=== PATIENT | female | born 1950 | race Caucasian/White ===

== ENCOUNTER → 2021-07-22 | Outpatient (CLI) | payer MEDICARE ==
--- NOTE | 2021-07-30 13:58 | MM ---
Reason for exam: screening (asymptomatic). Last mammogram was performed 2 years and 3 months ago. History: Patient is postmenopausal and is nulliparous. Physical Findings: A clinical breast exam by your physician is recommended on an annual basis and results should be correlated with mammographic findings. MG 3D Screening Mammo W/Cad Bilateral CC and MLO view(s) were taken. Prior study comparison: April 21, 2019, mammogram, performed at [place]. December 08, 2016, mammogram, performed at [place]. There are scattered fibroglandular densities. There is no discrete abnormality. No significant changes when compared with prior studies. ASSESSMENT: Negative, BI-RAD 1 RECOMMENDATION: Routine screening mammogram of both breasts in 1 year.
== END | disposition home or self-care (01) ==
LOC: RADMAMWWP 10:17
PROVIDERS: ATTEND Internal Medicine
DX: Z12.31 Encounter for screening mammogram for malignant neoplasm of breast (principal); Z78.0 Asymptomatic menopausal state
CPT/HCPCS: 77063; 77067

== ENCOUNTER → 2021-09-15 | Outpatient (CLI) | payer MEDICARE ==
--- NOTE | 2021-09-15 13:59 | BD ---
EXAMINATION TYPE: Axial Bone Density DATE OF EXAM: 09/15/2021 COMPARISON: NONE CLINICAL HISTORY: 71 years year old Female. ICD-10 CODE: N95.8 MENOPAUSAL AND PERIMENOPAUSAL SYMPTOM S Height: 62 Weight: 195 FRAX RISK QUESTIONS: Secondary Osteoporosis: YES 3. Menopause before 45: YES RISK FACTORS HISTORY OF: Postmenopausal woman: YES, TOTAL HYST AT AGE 25 YRS OLD, HORMONES IN PAST FOR 3 MONTHS ONLY Hyperparathyroidism: NO Adrenal Insufficiency: NO MEDICATIONS: Additional Medications: BP MEDS, METFORMIN IN THE PAST FOR 3 YRS, NONE NOW, STATIN FOR CHOLESTEROL, VIT D AND CALCIUM, BLOOD THINNERS, Additional History: VERY EARLY MENOPAUSE, HYPERTENSION, BORDERLINE DIABETIC, CHOLESTEROL, HEART COND ITION, WITH STENTS EXAM MEASUREMENTS: Bone mineral densitometry was performed using the Fan [employer] System. Bone mineral density as measured about the Lumbar spine is: ----- L1-L4(G/cm2): 1.191 T Score Values are as follows: ----- L1: 0.3 ----- L2: -0.3 ----- L3: 0.1 ----- L4: 0.2 ----- L1-L4: 0.1 Bone mineral density FIRST DEXA STUDY AT [facility] Bone mineral density about the R hip (g/cm2): 0.904 Bone mineral density about the L hip (g/cm2): 0.933 T Score values are as follows: -----R Neck: -2.5 -----L Neck: -2.6 -----R Total: -08 -----L Total: -0.6 Bone mineral density FIRST BONE DENSITY AT [facility] FRAX%s: The graph provided illustrates a 15.1% chance for a major osteoporotic fx and a 4.2% chance f or the hips probability for fx in 10 years time. IMPRESSION: Osteopenia NOTE: T-SCORE=SD OF THE YOUNG ADULT MEAN.
== END | disposition home or self-care (01) ==
LOC: RADBDWWP 09:52
PROVIDERS: ATTEND Internal Medicine
DX: M85.89 Other specified disorders of bone density and structure, multiple sites (principal); Z78.0 Asymptomatic menopausal state
CPT/HCPCS: 77080

== ENCOUNTER → 2021-12-25 | Outpatient (CLI) | payer MEDICARE | END | disposition home or self-care (01) | LOC: LABWHC1 12:31 | PROVIDERS: ATTEND Internal Medicine | DX: Z52.098 Other blood donor, other blood (principal) | CPT/HCPCS: 86900; 86901 ==

== ENCOUNTER → 2022-08-26 | Outpatient (CLI) | payer MEDICARE ==
--- NOTE | 2022-08-27 08:31 | MM ---
Reason for Exam: Screening (asymptomatic). Last mammogram was performed 1 year(s) and 1 month(s) ago. Patient History: Menarche at age 12. Patient has no children. Left ovary removed at age 22. Right ovary removed at age 22. Hysterectomy at age 22. Postmenopausal. Risk Values: Wendy 5 year model risk: 2.0%. NCI Lifetime model risk: 5.1%. Prior Study Comparison: 12/08/2016 Screening Mammogram, [place]. 04/21/2019 Screening Mammogram, [place]. 07/22/2021 Bilateral Screening Mammogram, [facility]. Tissue Density: There are scattered fibroglandular densities. Findings: Analyzed By CAD. There is no suspicious group of microcalcifications or new suspicious mass in either breast. Overall Assessment: Benign, BI-RAD 2 Management: Screening Mammogram of both breasts in 1 year. A clinical breast exam by your physician is recommended on an annual basis and results should be correlated with mammographic findings. Electronically signed and approved by: Pa Hughes M.D. Radiologis
== END | disposition home or self-care (01) ==
LOC: RADMAMWWP 13:40
PROVIDERS: ATTEND Internal Medicine
DX: Z12.31 Encounter for screening mammogram for malignant neoplasm of breast (principal); Z78.0 Asymptomatic menopausal state
CPT/HCPCS: 77063; 77067

== ENCOUNTER → 2022-09-14 | Outpatient (CLI) | payer MEDICARE ==
--- NOTE | 2022-09-14 12:39 | XR ---
EXAMINATION TYPE: XR lumbosacral spine min 4V DATE OF EXAM: 09/14/2022 CLINICAL HISTORY: Low back pain. TECHNIQUE: Frontal, lateral, and oblique images of the lumbar spine are obtained. COMPARISON: None. FINDINGS: There are 5 lumbar type vertebral bodies identified. The lumbar spine shows straightened alignment without evidence of acute fracture or dislocation. Vertebral body heights and disk space he ights are within normal limits. [id number] multilevel anterior and lateral spurring is present. The oblique images appear within normal limits. There is moderate to severe overlying arteriovascul ar calcification noted. IMPRESSION: As above.
== END | disposition home or self-care (01) ==
LOC: RADXRYALE 12:21
PROVIDERS: ATTEND Internal Medicine
DX: M54.31 Sciatica, right side (principal)
CPT/HCPCS: 72110

== ENCOUNTER → 2022-10-06 | Outpatient (CLI) | payer MEDICARE ==
[2022-10-06 15:28] LABS: African American GFR (CKD) 64.7 (60.0-200.0); Anion Gap 11.9 mmol/L (10.00-18.00); BUN/Creat Ratio 19.2 Ratio (12.00-20.00); Blood Urea Nitrogen 19.2 mg/dL (9.0-27.0); Calcium 9.4 mg/dL (8.7-10.3); Carbon Dioxide 28.1 mmol/L (20.0-27.5); Non-African American GFR(CKD) 55.8 (60.0-200.0); Potassium 4.5 mmol/L (3.5-5.5)
== END | disposition home or self-care (01) ==
LOC: LABWHC1 08:38
PROVIDERS: ATTEND Internal Medicine Interventional Cardiology
DX: N17.9 Acute kidney failure, unspecified (principal)
CPT/HCPCS: 36415; 80048

== ENCOUNTER → 2023-09-01 | Outpatient (CLI) | payer MEDICARE ==
[2023-09-01 16:01] LABS: ALT 23 U/L (8-44); AST 24 U/L (13-35); Chol/HDL Ratio 2.91 Ratio; LDL Cholesterol,Calculated 77.9 mg/dL (0.0-131.0)
== END | disposition home or self-care (01) ==
LOC: LABWHC1 08:37
PROVIDERS: ATTEND Internal Medicine Cardiovascular Disease
DX: E78.2 Mixed hyperlipidemia (principal)
CPT/HCPCS: 36415; 80061; 84450; 84460

== ENCOUNTER → 2023-09-01 | Outpatient (CLI) | payer MEDICARE ==
--- NOTE | 2023-09-02 19:10 | MM ---
Reason for Exam: Screening (asymptomatic). Last screening mammogram was performed 12 month(s) ago. Patient History: Menarche at age 12. Patient has no children. Left ovary removed at age 22. Right ovary removed at age 22. Hysterectomy at age 22. Postmenopausal. Risk Values: Wendy 5 year model risk: 2.0%. NCI Lifetime model risk: 4.8%. Prior Study Comparison: 04/21/2019 Screening Mammogram, [place]. 07/22/2021 Bilateral Screening Mammogram, [facility]. 08/26/2022 Bilateral MG 3D screening mammo w/cad, [facility]. Tissue Density: There are scattered areas of fibroglandular density. Findings: Analyzed By CAD. There is no suspicious group of microcalcifications or new suspicious mass in either breast. Overall Assessment: Negative, BI-RAD 1 Management: Screening Mammogram of both breasts in 1 year. . Patient should continue monthly self-breast exams. A clinical breast exam by your physician is recommended on an annual basis. This exam should not preclude additional follow-up of suspicious palpable abnormalities. Note on Wendy scores and lifetime risk: 1. A Wendy score greater than 3% is considered moderate risk. If this is the case, consider specialist referral to assess eligibility for a risk reducing agent. 2. If overall lifetime risk for the development of breast cancer is 20% or higher, the patient may qualify for future screening with alternating mammogram and breast MRI. Electronically signed and approved by: Hannah Ochoa M.D. Radiologist
== END | disposition home or self-care (01) ==
LOC: RADMAMWWP 08:52
PROVIDERS: ATTEND Internal Medicine
DX: Z12.31 Encounter for screening mammogram for malignant neoplasm of breast (principal); Z78.0 Asymptomatic menopausal state
CPT/HCPCS: 77063; 77067